=== PATIENT | female | born 1925 | race Caucasian/White ===

== ENCOUNTER 2017-07-29 11:17 | Emergency (ER) | payer MEDICARE, BC ==
[~2017-07-29] VITALS: Ht 152.4 cm; Wt 72.6 kg
[~2017-07-29 11:17] MED LIST: ATEN1TAB47 PO; LEVO150T8 PO; POTA-10 PO
--- NOTE | 2017-07-29 11:30 | NUR ---
PRESENTS TO ER C/O NON TRAUMATIC LEFT HIP PAIN X 1 WK. PATIENT IS A/OX 4. BREATHING EVEN AND UNLABORED. NO SOB, NAD, VITALS STABLE. SAFETY AND COMFORT MEASURES IN PLACE. AWAITING MD ORDERS.
[2017-07-29] MEDS ORDERED: ACETAMINOPHEN 325 MG TABLET PO ONE (12:00)
[2017-07-29] MEDS ORDERED: ACETAMINOPHEN 325 MG TABLET ONE ×2 (12:01→12:03)
--- NOTE | 2017-07-29 12:05 | NUR ---
PATTIENT MEDICATED PER MD ORDERS.
[2017-07-29 14:02] VITALS: BP 143/78
--- NOTE | 2017-07-29 14:03 | NUR ---
Patient discharged to home in stable condition. Written and verbal after care instructions given. Patient verbalizes understanding of instruction.
== END 2017-07-29 14:03 | disposition home or self-care (01) ==
LOC: ER 11:18
DX: M25.552 Pain in left hip (principal); I10 Essential (primary) hypertension; M19.90 Unspecified osteoarthritis, unspecified site; Z88.0 Allergy status to penicillin; Z88.8 Allergy status to other drugs, medicaments and biological substances; Z98.890 Other specified postprocedural states
CPT/HCPCS: 73502; A4606; Z7610